=== PATIENT | male | born 1990 | race Two or more races ===

== ENCOUNTER 2017-10-31 13:04 | Emergency (ER) | payer SELFPAY ==
[~2017-10-31] VITALS: Ht 175.3 cm; Wt 72.6 kg
--- NOTE | 2017-10-31 13:24 | Emergency Room Report ---
History of Present Illness General Chief Complaint: Alcohol Intoxication Source: Patient Present Illness HPI 27-year-old male patient presents to ER in by ambulance for EtOH intoxication. EMS patient was picked up from somebody else's house. Patient reports that he wants to get sober so that he can "be better for his girlfriend". Patient denies acute complaints at this time. Patient reports drinking alcohol. Patient denies doing drugs. Patient denies past medical history. Patient denies fever, chest pain, shortness breath, abdominal pain, vomiting, diarrhea. Allergies: Coded Allergies: No Known Allergies (Unverified , 10/31/17) Patient History Past Medical History: see triage record Reviewed Nursing Documentation: PMH: Agreed; PSxH: Agreed Nursing Documentation-PMH Past Medical History: No Stated History Review of Systems All Other Systems: negative except mentioned in HPI Physical Exam Vital Signs Date Time Temp Pulse Resp B/P (MAP) Pulse Ox O2 Delivery O2 Flow Rate FiO2 10/31/17 13:01 97.8 92 16 142/80 98 Room Air 97.9 Sp02 EP Interpretation: reviewed, normal General Appearance: well appearing, no apparent distress, alert, GCS 15, non- toxic Head: normocephalic, atraumatic Eyes: bilateral eye normal inspection, bilateral eye PERRL, bilateral eye other - dilated pupils ENT: hearing grossly normal, normal pharynx, no angioedema, normal voice, uvula midline, moist mucus membranes Neck: full range of motion Respiratory: lungs clear, normal breath sounds, no rhonchi, no respiratory distress, no accessory muscle use, no wheezing, speaking full sentences Cardiovascular #1: regular rate, rhythm, no edema Gastrointestinal: non tender, soft, no mass, non-distended, no guarding, no rebound Genitourinary: no CVA tenderness Musculoskeletal: back normal, digits/nails normal, gait/station normal, normal range of motion, non-tender Neurologic: alert, oriented x3, responsive, motor strength/tone normal, sensory intact Psychiatric: mood/affect normal Skin: no rash Lymphatic: no adenopathy Medical Decision Making PA Attestation Dr. Enamorado is my supervising Physician whom patient management has been discussed with. Diagnostic Impression: Primary Impression: Acute alcoholic intoxication Additional Impression: Drug use ER Course Pt. presents to the ED for alcohol intoxication. Ddx considered but are not limited to drug use, alcohol use, psychosis. Vital signs: are WNL, pt. is afebrile. Mild elevation of blood pressure, will continue to monitor. Patient denies acute complaints, does not require acute intervention in ER. ER COURSE: patient resting comfortably in bed, in no acute distress, nontoxic appearing. Physical exam benign, lungs clear to auscultation, no trauma or lacerations, no abdominal TTP. Will allow patient to sober up from EtOH use while in ER. Patient able to answer questions, and AOx4 Spoke with patient's stepmother Ceci on the phone who reports that patient has a history of alcohol use and reports patient states he has been experimenting with cocaine. Mother reports that patient's girlfriend and girlfriend's mother will be reporting to ER, patient has appointment to be checked into a [facility] facility. patient's girlfriend and girlfriend's mother reported to ER, report that they will be taking [facility]. Patient vital signs stable, denies acute complaints located discharge patient to girlfriend and girlfriend's mother's care. Patient able to ambulate independently. Instructed patient to not drink alcohol in excess. Don't use drugs. ER precautions given. Do not believe patient is a danger to herself or others at this time. DISCHARGE: At this time pt is stable for d/c to home. Patient is resting comfortably, in no acute distress, nontoxic appearing, talking without difficulty. Patient to take medications as instructed Will provide with patient care instructions and any necessary prescriptions. Care plan and follow-up instructions provided. Patient instructed to follow-up with primary care provider in 3 - 5 days. Patient questions asked and answered. Patient reports understanding and agreement to treatment plan. ER precautions given. Patient instructed to return to ER immediately for any new or worsening of symptoms including but not limited to increasing SOB, persistent fever. - Please note that this Emergency Department Report was dictated using [employer]habilitative services technology software, occasionally this can lead to erroneous entry secondary to interpretation by the dictation equipment. Last Vital Signs Date Time Temp Pulse Resp B/P (MAP) Pulse Ox O2 Delivery O2 Flow Rate FiO2 10/31/17 13:01 97.8 92 16 142/80 98 Room Air 97.9 Disposition: HOME, SELF-CARE Condition: Stable Patient Instructions: Alcohol Intoxication, [id number], Drug Toxicity Additional Instructions: Report to [facility] immediately for patient detox. Patient questions asked and answered. ER precautions given, patient instructed to return to ER immediately for any new or worsening of symptoms. Darshan Mattson Oct 31, 2017 13:24
[2017-10-31 13:41] VITALS: BP 130/80
== END 2017-10-31 13:45 | disposition home or self-care (01) ==
LOC: EDBD 13:04 → EMR 13:35
DX: F10.129 Alcohol abuse with intoxication, unspecified (principal)
CPT/HCPCS: 96372; 96374; 99283